=== PATIENT | male | born 1965 | race Caucasian/White ===

== ENCOUNTER 2017-03-06 07:43 | Inpatient (IN) | payer MEDICAID, OTHER ==
[~2017-03-06] VITALS: Ht 177.8 cm; Wt 100.7 kg
[~2017-03-06 07:43] MED LIST: ATEN50TA PO; HAL1 PO; LISI10TA5 PO; PHEN100C4 PO; THIA100T13 PO
[2017-03-06 07:45] VITALS: BP_SYST 156
[2017-03-06] MEDS ORDERED: NACL 0.9% 1,000 ML IV ONE (08:10)
[2017-03-06 08:22] LABS: BASOPHILS % (AUTO) 0.2 % (0.0-2.0); EOSINOPHILS % (AUTO) 0.4 % (0.0-4.0); HEMATOCRIT 39.8 % (36-54); LYMPHOCYTES # (AUTO) 5.8 K/uL (1.0-5.5); LYMPHOCYTES % (AUTO) 57.1 % (20.5-51.5); MEAN CORPUSCULAR HEMOGLOBIN 29 pg (27-31); MEAN CORPUSCULAR HGB CONC 33 % (32-36); MEAN CORPUSCULAR VOLUME 89 fL (79.0-98.0); MONOCYTES # (AUTO) 0.7 K/uL (0.0-1.0); MONOCYTES % (AUTO) 6.8 % (1.7-9.3); NEUTROPHILS # (AUTO) 3.5 K/uL (1.8-7.7); RED BLOOD CELL COUNT(AUTO) 4.46 MIL/uL (4.2-6.2); RED CELL DISTRIBUTION WIDTH 15.3 % (9.0-15.0); WHITE BLOOD COUNT (AUTO) 9.9 K/uL (4.8-10.8)
[2017-03-06 08:26] LABS: CALCIUM 7.8 mg/dL (8.4-11.0); CREATININE 0.73 mg/dL (0.55-1.30)
[2017-03-06 08:31] LABS: PLATELET COUNT (AUTO) 41 K/uL (130-430)
[2017-03-06 08:33] LABS: INR 1.1 (0.80-1.20); PROTHROMBIN TIME 11.4 SECS (9.5-12.5)
[2017-03-06 08:38] LABS: POTASSIUM 2.7 mmol/L (3.5-5.1)
[2017-03-06] MEDS ORDERED: KCL 20 mEq in 100 mL (PREMIX) 100 ML IV ONE (08:45)
[2017-03-06 08:49] LABS: TOTAL BILIRUBIN 0.4 mg/dL (0.0-1.0)
[2017-03-06 09:05] LABS: NEUTROPHILS % (AUTO) 35.5 % (40.0-70.0)
[2017-03-06 09:10] LABS: BILIRUBIN,URINE NEGATIVE (NEGATIVE); BLOOD, URINE 1+ (NEGATIVE); CLARITY/URINE CLEAR (CLEAR); COLOR,URINE YELLOW (YELLOW); GLUCOSE,URINE NEGATIVE (NEGATIVE); KETONES,URINE TRACE (NEGATIVE); LEUKOCYTE ESTERASE ,URINE NEGATIVE (NEGATIVE); NITRITE, URINE NEGATIVE (NEGATIVE); PROTEIN URINE 2+ (NEGATIVE); UROBILINOGEN,URINE 0.2 (0.2-1.0)
[2017-03-06 09:18] LABS: BARBITURATE, URINE NEGATIVE (NEG <=200); BENZODIAZEPINE, URINE NEGATIVE (NEG <=150); CANNABINOID, URINE NEGATIVE (NEG <=50); COCAINE, URINE NEGATIVE (NEG <=150); METHAMPHETAMINES SCREEN,URINE NEGATIVE (NEG <=500); OPIATE, URINE NEGATIVE (NEG <=100); PHENCYCLIDINE SCREEN,URINE NEGATIVE (NEG <=25); UR TRICYCLIC ANTIDEPRESSANTS NEGATIVE (NEG <=300); URINE AMPHETAMINE NEGATIVE (NEG <=500); URINE METHADONE NEGATIVE (NEG <=200); URINE OXYCODONE SCREEN NEGATIVE (NEG <=100); URINE PROPOXYPHENE SCREEN NEGATIVE (NEG <=300)
[2017-03-06 09:20] LABS: AMYLASE 42 U/L (0-100)
[2017-03-06 09:21] LABS: LIPASE 136 U/L (73-393)
[2017-03-06 09:23] LABS: BACTERIA,URINE None Seen /HPF (None Seen); MUCUS,URINE 3+ /LPF (None Seen); WBC,URINE 0-3 /HPF (0-3)
[2017-03-06] MEDS ORDERED: FOLIC ACID 1 MG, THIAMINE HCL 100 MG, MAGNESIUM SULFATE 1 GM, MVI 10 ML in NACL 0.9% 1,... IV ONE (09:30)
[2017-03-06] MEDS ORDERED: PANTOPRAZOLE SODIUM 40 MG/VIAL (PROTONIX) IVP ONE (09:45)
[2017-03-06] MEDS ORDERED: PANTOPRAZOLE SODIUM 40 MG/VIAL (PROTONIX) ONE (10:11)
[2017-03-06 10:23] VITALS: BP_SYST 147
[2017-03-06] MEDS ORDERED: POTASSIUM CHLORIDE 40 MEQ, LIDOCAINE JECT 2% PF 100 MG 50 MG in NS 250 ML IV ONE (11:30)
[2017-03-06 12:21] VITALS: BP_SYST 151
[2017-03-06] MEDS: LORazepam 2 MG/ML VIAL IVP PRN ×2 (13:31→21:00)
[2017-03-06 16:19] VITALS: BP_SYST 112
[2017-03-06 19:59] VITALS: BP_SYST 143
[2017-03-06] MEDS: PHENYTOIN 100 MG CAPSULE PO SCH (20:58)
[2017-03-06] MEDS: FAMOTIDINE 20 MG TABLET PO SCH (20:58)
[2017-03-06] MEDS: POTASSIUM CHLORIDE 20 MEQ TAB.PRT.SR PO SCH (20:59)
[2017-03-06] MEDS: ATENOLOL 50 MG TABLET (TENORMIN) PO SCH (20:59)
[2017-03-06] MEDS: ONDANSETRON HCL 4 MG/2 ML VIAL IVP PRN (20:59)
[2017-03-06] MEDS: HALOPERIDOL 1 MG TABLET (HALDOL) PO SCH (20:59)
[2017-03-07 00:02] VITALS: BP_SYST 130
[2017-03-07 03:30] VITALS: BP_SYST 133
[2017-03-07] MEDS: LORazepam 2 MG/ML VIAL IVP PRN (05:09)
[2017-03-07] MEDS: ONDANSETRON HCL 4 MG/2 ML VIAL IVP PRN ×3 (05:09→20:18)
[2017-03-07 07:49] LABS: BASOPHILS % (AUTO) 0.2 % (0.0-2.0); EOSINOPHILS % (AUTO) 0.5 % (0.0-4.0); HEMATOCRIT 36.3 % (36-54); HEMOGLOBIN 12.6 g/dL (14.0-18.0); LYMPHOCYTES # (AUTO) 1.9 K/uL (1.0-5.5); LYMPHOCYTES % (AUTO) 31.4 % (20.5-51.5); MEAN CORPUSCULAR HEMOGLOBIN 30 pg (27-31); MEAN CORPUSCULAR HGB CONC 35 % (32-36); MEAN CORPUSCULAR VOLUME 88 fL (79.0-98.0); MONOCYTES # (AUTO) 0.5 K/uL (0.0-1.0); MONOCYTES % (AUTO) 9.2 % (1.7-9.3); NEUTROPHILS # (AUTO) 3.5 K/uL (1.8-7.7); NEUTROPHILS % (AUTO) 58.7 % (40.0-70.0); RED BLOOD CELL COUNT(AUTO) 4.13 MIL/uL (4.2-6.2); RED CELL DISTRIBUTION WIDTH 14.4 % (9.0-15.0); WHITE BLOOD COUNT (AUTO) 5.9 K/uL (4.8-10.8)
[2017-03-07 08:00] VITALS: BP_SYST 142
[2017-03-07 08:08] LABS: INR 1.1 (0.80-1.20); PROTHROMBIN TIME 11.7 SECS (9.5-12.5)
[2017-03-07] MEDS: POTASSIUM CHLORIDE 20 MEQ TAB.PRT.SR PO SCH ×2 (08:51→20:54)
[2017-03-07] MEDS: THIAMINE HCL 100 MG TABLET PO SCH (08:51)
[2017-03-07] MEDS: FAMOTIDINE 20 MG TABLET PO SCH ×2 (08:51→20:53)
[2017-03-07] MEDS: ATENOLOL 50 MG TABLET (TENORMIN) PO SCH ×2 (08:51→20:53)
[2017-03-07] MEDS: LISINOPRIL 10 MG TABLET (PRINIVIL) PO SCH (08:51)
[2017-03-07] MEDS: HALOPERIDOL 1 MG TABLET (HALDOL) PO SCH ×3 (08:51→20:54)
[2017-03-07 08:56] LABS: PLATELET COUNT (AUTO) 37 K/uL (130-430)
[2017-03-07 09:16] LABS: ALBUMIN 3.8 g/dL (3.4-4.8); CALCIUM 7.8 mg/dL (8.4-11.0); CREATININE 0.6 mg/dL (0.55-1.30); POTASSIUM 3.2 mmol/L (3.5-5.1); TOTAL BILIRUBIN 1.1 mg/dL (0.0-1.0)
[2017-03-07 12:20] VITALS: BP_SYST 159
[2017-03-07 16:18] VITALS: BP_SYST 149
[2017-03-07 20:00] VITALS: BP_SYST 142
[2017-03-07] MEDS: PHENYTOIN 100 MG CAPSULE PO SCH (20:50)
[2017-03-08 00:18] VITALS: BP_SYST 155
[2017-03-08] MEDS: LORazepam 2 MG/ML VIAL IVP PRN (03:01)
[2017-03-08 04:50] VITALS: BP_SYST 142
[2017-03-08 07:20] LABS: EOSINOPHILS # (AUTO) 0.1 K/uL (0.0-0.4); MEAN CORPUSCULAR HEMOGLOBIN 30 pg (27-31); MEAN CORPUSCULAR VOLUME 89 fL (79.0-98.0); MONOCYTES # (AUTO) 0.6 K/uL (0.0-1.0); WHITE BLOOD COUNT (AUTO) 5.8 K/uL (4.8-10.8)
[2017-03-08] MEDS: ONDANSETRON HCL 4 MG/2 ML VIAL IVP PRN (07:22)
[2017-03-08 07:29] LABS: BASOPHILS % (AUTO) 0.1 % (0.0-2.0); EOSINOPHILS % (AUTO) 1.4 % (0.0-4.0); HEMATOCRIT 39.8 % (36-54); HEMOGLOBIN 13.3 g/dL (14.0-18.0); LYMPHOCYTES # (AUTO) 2.2 K/uL (1.0-5.5); LYMPHOCYTES % (AUTO) 37.4 % (20.5-51.5); MEAN CORPUSCULAR HGB CONC 33 % (32-36); MONOCYTES % (AUTO) 9.6 % (1.7-9.3); NEUTROPHILS # (AUTO) 2.9 K/uL (1.8-7.7); NEUTROPHILS % (AUTO) 51.5 % (40.0-70.0); RED BLOOD CELL COUNT(AUTO) 4.49 MIL/uL (4.2-6.2); RED CELL DISTRIBUTION WIDTH 14.7 % (9.0-15.0)
[2017-03-08 07:46] LABS: ALBUMIN 3.7 g/dL (3.4-4.8); CALCIUM 8.7 mg/dL (8.4-11.0); CREATININE 0.59 mg/dL (0.55-1.30); POTASSIUM 3.2 mmol/L (3.5-5.1); TOTAL BILIRUBIN 1.1 mg/dL (0.0-1.0)
[2017-03-08 08:06] VITALS: BP_SYST 158
[2017-03-08 08:27] LABS: PLATELET COUNT (AUTO) 37 K/uL (130-430)
[2017-03-08] MEDS: POTASSIUM CHLORIDE 20 MEQ TAB.PRT.SR PO SCH ×2 (08:27→21:47)
[2017-03-08] MEDS: LISINOPRIL 10 MG TABLET (PRINIVIL) PO SCH (08:28)
[2017-03-08] MEDS: THIAMINE HCL 100 MG TABLET PO SCH (08:28)
[2017-03-08] MEDS: FAMOTIDINE 20 MG TABLET PO SCH ×2 (08:28→21:47)
[2017-03-08] MEDS: ATENOLOL 50 MG TABLET (TENORMIN) PO SCH ×2 (08:28→21:48)
[2017-03-08] MEDS: HALOPERIDOL 1 MG TABLET (HALDOL) PO SCH ×3 (08:28→21:47)
[2017-03-08 12:38] VITALS: BP_SYST 149
[2017-03-08 16:15] VITALS: BP_SYST 147
[2017-03-08 20:05] VITALS: BP_SYST 146
[2017-03-08] MEDS: PHENYTOIN 100 MG CAPSULE PO SCH (21:48)
[2017-03-09 00:06] VITALS: BP_SYST 117
[2017-03-09 05:15] VITALS: BP_SYST 140
[2017-03-09 07:45] LABS: EOSINOPHILS # (AUTO) 0.1 K/uL (0.0-0.4); LYMPHOCYTES # (AUTO) 2.6 K/uL (1.0-5.5); MEAN CORPUSCULAR HGB CONC 33 % (32-36); MEAN CORPUSCULAR VOLUME 89 fL (79.0-98.0); MONOCYTES # (AUTO) 0.7 K/uL (0.0-1.0); MONOCYTES % (AUTO) 8.2 % (1.7-9.3)
[2017-03-09 08:00] VITALS: BP_SYST 161
[2017-03-09 08:00] LABS: BASOPHILS % (AUTO) 0.1 % (0.0-2.0); EOSINOPHILS % (AUTO) 1.6 % (0.0-4.0); HEMATOCRIT 39.7 % (36-54); LYMPHOCYTES % (AUTO) 32.4 % (20.5-51.5); MEAN CORPUSCULAR HEMOGLOBIN 29 pg (27-31); NEUTROPHILS # (AUTO) 4.6 K/uL (1.8-7.7); NEUTROPHILS % (AUTO) 57.7 % (40.0-70.0); RED BLOOD CELL COUNT(AUTO) 4.47 MIL/uL (4.2-6.2); RED CELL DISTRIBUTION WIDTH 15.2 % (9.0-15.0)
[2017-03-09 08:22] LABS: ALBUMIN 3.8 g/dL (3.4-4.8); CREATININE 0.7 mg/dL (0.55-1.30); POTASSIUM 3.3 mmol/L (3.5-5.1); TOTAL BILIRUBIN 0.8 mg/dL (0.0-1.0)
[2017-03-09] MEDS ORDERED: MULTIVITAMINS TAB 1 TABLET PO SCH (09:00)
[2017-03-09 09:29] LABS: PLATELET COUNT (AUTO) 48 K/uL (130-430)
[2017-03-09] MEDS: FAMOTIDINE 20 MG TABLET PO SCH (10:08)
[2017-03-09] MEDS: ATENOLOL 50 MG TABLET (TENORMIN) PO SCH (10:10)
[2017-03-09] MEDS: HALOPERIDOL 1 MG TABLET (HALDOL) PO SCH (10:10)
[2017-03-09] MEDS: LISINOPRIL 10 MG TABLET (PRINIVIL) PO SCH (10:10)
[2017-03-09] MEDS: THIAMINE HCL 100 MG TABLET PO SCH (10:10)
[2017-03-09] MEDS: POTASSIUM CHLORIDE 20 MEQ TAB.PRT.SR PO SCH (10:11)
[2017-03-09] MEDS ORDERED: FLU VACC QS 2017-18(36MOS+)/PF 0.5 ML/SYR SYRINGE I.M. PRN (11:15)
[2017-03-09] MEDS ORDERED: POTA20TA83 PO (12:35)
[2017-03-09] MEDS ORDERED: EYEL15SP TP (12:44)
[2017-03-09 12:50] VITALS: BP_SYST 143
[2017-03-09 13:01] VITALS: BP_SYST 143
== END 2017-03-09 13:34 | disposition home or self-care (01) | DRG 203 ==
LOC: SED 07:43 → STU 09:45 → SMU 03-08 21:45
PROVIDERS: ADMIT Internal Medicine; ATTEND Internal Medicine
PROC: HZ2ZZZZ Detoxification Services for Substance Abuse Treatment (ICD-10-PCS; principal; 2017-03-06)
DX: R07.89 Other chest pain (principal); E87.2 Acidosis; D69.6 Thrombocytopenia, unspecified; K70.30 Alcoholic cirrhosis of liver without ascites; I10 Essential (primary) hypertension; E87.6 Hypokalemia; F10.20 Alcohol dependence, uncomplicated; G40.909 Epilepsy, unspecified, not intractable, without status epilepticus; F41.9 Anxiety disorder, unspecified; F32.9 Major depressive disorder, single episode, unspecified; F17.200 Nicotine dependence, unspecified, uncomplicated; Z79.899 Other long term (current) drug therapy
CPT/HCPCS: 36415; 71020-TC; 76700-TC; 80053; 80307; 81000-TC; 82140-TC; 82150-TC; 83605; 83690-TC; 83735-TC; 83880; 84484; 85025; 85610-TC; 85730-TC; 86886; 86900; 86901; 93005; 93306; 96361; 96365; 96375; 99285; C9113; G0482; J2060; J2405; J3411; J3475; J3480; J3490; J7030; J7050